=== PATIENT | male | born 1985 | race African-American/Black ===

== ENCOUNTER 2021-10-22 08:56 | Emergency (ER) | payer MEDICAID ==
[~2021-10-22] VITALS: Ht 172.7 cm; Wt 86.0 kg
[2021-10-22] MEDS ORDERED: ONDANSETRON HCL 4MG/2ML INJ IV STA (09:17)
[2021-10-22] MEDS ORDERED: MORPHINE SULFATE 4 MG/ML CPJ (NOT FOR IM USE) IV STA (09:17)
[2021-10-22 09:39] LABS: HEMATOCRIT. 42.1 % (42.0-52.0); HEMOGLOBIN. 13.9 g/dL (14.0-18.0); MEAN CORPUSCULAR HEMOGLOBIN 30.4 pg (28.0-32.0); MEAN CORPUSCULAR VOLUME 92.2 fL (80.0-94.0); MEAN PLATELET VOLUME 7.3 fl (7.4-10.4); PLATELET 536 x1000/uL (130-400); RED BLOOD CELL COUNT 4.57 mill/uL (4.7-6.1); RED CELL DISTRIBUTION WIDTH 13.9 % (11.6-14.6)
[2021-10-22 09:48] LABS: CHLORIDE 104 mEq/L (98-107)
[2021-10-22 10:04] LABS: NUCLEATED RED BLOOD CELLS 1 /100 WBC; PLATELET ESTIMATE INCREASED
[2021-10-22] MEDS ORDERED: LEVOFLOXACIN 750MG PREMIX 150 ML IV ONE (11:30)
[2021-10-22] MEDS ORDERED: METRONIDAZOLE 500 MG PREMIX 100 ML IV ONE (11:30)
[2021-10-22] MEDS ORDERED: METRONIDAZOLE 500MG TABLET PO NR (11:45)
[2021-10-22 14:02] VITALS: BP 136/82
== END 2021-10-22 14:43 | disposition short-term general hospital (02) ==
LOC: ER 09:03
DX: K52.9 Noninfective gastroenteritis and colitis, unspecified (principal); K57.30 Diverticulosis of large intestine without perforation or abscess without bleeding; K44.9 Diaphragmatic hernia without obstruction or gangrene; R03.0 Elevated blood-pressure reading, without diagnosis of hypertension; J45.909 Unspecified asthma, uncomplicated; R59.0 Localized enlarged lymph nodes; F17.210 Nicotine dependence, cigarettes, uncomplicated; F12.90 Cannabis use, unspecified, uncomplicated; Z71.6 Tobacco abuse counseling; Z90.49 Acquired absence of other specified parts of digestive tract
CPT/HCPCS: 36415; 74176; 80053; 83690; 85025; 93005; 96365; 96375; 99285; J1956; J2270; J2405; J3490

== ENCOUNTER 2024-01-09 14:28 | Emergency (ER) | payer MEDICAID, OTHER ==
[~2024-01-09] VITALS: Ht 180.3 cm; Wt 109.0 kg
[2024-01-09 14:36] VITALS: TEMP 98.3; O2SAT 100
[2024-01-09] MEDS ORDERED: ACET-2708 MT (14:59)
[2024-01-09] MEDS ORDERED: FLUT15.844 BOTHNSTRLS (14:59)
[2024-01-09] MEDS: DEXAMETHASONE 10 MG/ML VIAL PO ONE (16:43)
[2024-01-09] MEDS: ACETAMINOPHEN 325MG TABLET PO ONE (16:43)
[2024-01-09] MEDS ORDERED: FAMO-135 MT (17:17)
[2024-01-09 18:20] VITALS: BP 144/89; PULSE 68; RESP 16
== END 2024-01-09 18:21 | disposition home or self-care (01) ==
LOC: ER 14:28
DX: J02.9 Acute pharyngitis, unspecified (principal); K21.9 Gastro-esophageal reflux disease without esophagitis; F12.10 Cannabis abuse, uncomplicated; H69.82 Other specified disorders of Eustachian tube, left ear; Z98.890 Other specified postprocedural states; Z90.49 Acquired absence of other specified parts of digestive tract
CPT/HCPCS: 87430; 87070; 99283; J1100; Z7610

== ENCOUNTER 2024-02-26 16:07 | Emergency (ER) | payer OTHER ==
[~2024-02-26] VITALS: Ht 182.9 cm; Wt 91.0 kg
[~2024-02-26 16:07] MED LIST: ACET-2708 MT; FAMO-135 MT; FLUT15.844 BOTHNSTRLS
[2024-02-26 16:23] VITALS: BP 145/103; PULSE 90; RESP 16; TEMP 97.9; O2SAT 100
[2024-02-26] MEDS ORDERED: TETANUS, DIPHTHERIA, PERTUSSIS VAC/PF 0.5ML (>10YR OLD) IM ONE (16:45)
[2024-02-26] MEDS ORDERED: LIDOCAINE HCL/PF 1% 10 MG/ML 5ML VIAL INFIL ONE (16:45)
== END 2024-02-26 17:18 | disposition left against medical advice (07) ==
LOC: ER 16:07
DX: S01.01XA Laceration without foreign body of scalp, initial encounter (principal); F10.129 Alcohol abuse with intoxication, unspecified; F12.10 Cannabis abuse, uncomplicated; Z88.6 Allergy status to analgesic agent; Z98.890 Other specified postprocedural states; Z90.49 Acquired absence of other specified parts of digestive tract; Y04.0XXA Assault by unarmed brawl or fight, initial encounter; Y93.89 Activity, other specified; Y92.89 Other specified places as the place of occurrence of the external cause; Y99.8 Other external cause status; Y90.9 Presence of alcohol in blood, level not specified
CPT/HCPCS: 12001; 99283; J3490; Z7610

== ENCOUNTER 2024-02-26 18:42 | Emergency (ER) | payer OTHER ==
[~2024-02-26] VITALS: Ht 180.3 cm; Wt 104.0 kg
[2024-02-26 18:52] VITALS: O2SAT 95
[2024-02-26] MEDS: LIDOCAINE HCL/PF 1% 10 MG/ML 5ML VIAL INFIL ONE (20:14)
[2024-02-26 21:38] VITALS: BP 140/80; PULSE 79; RESP 16; TEMP 98.7
== END 2024-02-26 21:40 | disposition home or self-care (01) ==
LOC: ER 18:42
DX: S01.01XA Laceration without foreign body of scalp, initial encounter (principal); S09.90XA Unspecified injury of head, initial encounter; F10.129 Alcohol abuse with intoxication, unspecified; J45.909 Unspecified asthma, uncomplicated; F12.10 Cannabis abuse, uncomplicated; Z90.49 Acquired absence of other specified parts of digestive tract; Y08.89XA Assault by other specified means, initial encounter; Y93.89 Activity, other specified; Y92.89 Other specified places as the place of occurrence of the external cause; Y99.8 Other external cause status; Y90.0 Blood alcohol level of less than 20 mg/100 ml
CPT/HCPCS: 71045; 70450; 72125; 12002; 99284; J3490; Z7610

== ENCOUNTER 2024-03-08 19:22 | Emergency (ER) | payer OTHER ==
[~2024-03-08] VITALS: Ht 180.3 cm; Wt 100.0 kg
[2024-03-08 19:46] VITALS: BP 116/77; PULSE 75; RESP 14; TEMP 98.7; O2SAT 99
[2024-03-08] MEDS ORDERED: BO1 TP (22:09)
== END 2024-03-08 22:14 | disposition home or self-care (01) ==
LOC: ER 21:09
DX: S09.90XD Unspecified injury of head, subsequent encounter (principal); J45.909 Unspecified asthma, uncomplicated; F12.10 Cannabis abuse, uncomplicated; Z79.899 Other long term (current) drug therapy; X58.XXXD Exposure to other specified factors, subsequent encounter
CPT/HCPCS: 99281

== ENCOUNTER 2025-01-15 10:33 | Emergency (ER) | payer OTHER ==
[~2025-01-15] VITALS: Ht 180.3 cm; Wt 104.3 kg
[~2025-01-15 10:33] MED LIST changes: +BO1 TP
[2025-01-15 10:41] VITALS: BP 174/118; PULSE 71; RESP 16; TEMP 36.7; O2SAT 100
[2025-01-15] MEDS: MAGNESIUM/ALUMINUM HYDROXIDE/SIMETHICONE 30ML UDC PO ONE (11:00)
[2025-01-15] MEDS: ACETAMINOPHEN 325MG TABLET PO ONE (11:00)
[2025-01-15] MEDS: FAMOTIDINE 20MG TABLET PO ONE (11:00)
[2025-01-15 11:12] LABS: HEMATOCRIT. 34.6 % (42.0-52.0); HEMOGLOBIN. 10.3 g/dL (14.0-18.0); MEAN CORPUSCULAR HEMOGLOBIN 20.4 pg (28.0-32.0); MEAN CORPUSCULAR HGB CONC 29.8 g/dL (31.0-37.0); MEAN CORPUSCULAR VOLUME 68.6 fL (80.0-94.0); MEAN PLATELET VOLUME 7.5 fl (7.4-10.4); PLATELET 533 x1000/uL (130-400); RED BLOOD CELL COUNT 5.04 mill/uL (4.7-6.1); RED CELL DISTRIBUTION WIDTH 20.7 % (11.6-14.6); WHITE BLOOD COUNT 9.2 x1000/uL (4.5-11.0)
[2025-01-15 11:15] LABS: CHLORIDE 99 mEq/L (98-107); POTASSIUM 3.8 mEq/L (3.5-5.1); SODIUM 139 mEq/L (136-145)
[2025-01-15 11:16] LABS: CALCIUM 9.5 mg/dL (8.7-10.4); CARBON DIOXIDE 32 mEq/L (21-32)
[2025-01-15 11:17] LABS: DIFFERENTIAL COMMENT 1
[2025-01-15 11:21] LABS: GLUCOSE 90 mg/dL (70-105); UREA NITROGEN BLOOD 8 mg/dL (9-23)
[2025-01-15 11:23] LABS: ALANINE AMINOTRANSFERASE < 7 IU/L (10-49); ALBUMIN 4.3 g/dL (3.2-4.8); ASPARTATE AMINOTRANSFERASE 16 IU/L (<34); BILIRUBIN TOTAL 0.5 mg/dL (0.1-1.0); PROTEIN TOTAL 7.5 g/dL (6.0-8.3)
[2025-01-15 11:52] LABS: ANISOCYTOSIS 2+; HYPOCHROMASIA 1+; MICROCYTOSIS 2+; PLATELET ESTIMATE INCREASED
[2025-01-15] MEDS ORDERED: FAMO-135 MT (11:56)
== END 2025-01-15 12:51 | disposition home or self-care (01) ==
LOC: ER 10:33
DX: R10.9 Unspecified abdominal pain (principal); Z88.6 Allergy status to analgesic agent
CPT/HCPCS: 36415; 80053; 85025; 99284

== ENCOUNTER 2025-08-19 15:37 | Emergency (ER) | payer OTHER ==
[~2025-08-19] VITALS: Ht 182.9 cm; Wt 91.0 kg
[2025-08-19 15:38] VITALS: O2SAT 98
[2025-08-19] MEDS: LIDOCAINE HCL/EPINEPHRINE 1%-EPI 1:100,000 20ML VIAL INFIL ONE (16:00)
[2025-08-19] MEDS: TETANUS, DIPHTHERIA, PERTUSSIS VAC/PF 0.5ML (>10YR OLD) IM ONE (16:00)
[2025-08-19] MEDS: ACETAMINOPHEN 325MG TABLET PO ONE (16:15)
[2025-08-19] MEDS: MORPHINE SULFATE 4 MG/ML INJ (FOR IV/IM USE) IM ONE (17:15)
[2025-08-19] MEDS ORDERED: CLIN-116 MT (18:19)
[2025-08-19 18:44] VITALS: BP 159/105; PULSE 71; RESP 18; TEMP 37.1; O2SAT 100
== END 2025-08-19 18:44 | disposition home or self-care (01) ==
LOC: ER 15:41
DX: S01.511A Laceration without foreign body of lip, initial encounter (principal); F12.90 Cannabis use, unspecified, uncomplicated; J45.909 Unspecified asthma, uncomplicated; F10.90 Alcohol use, unspecified, uncomplicated; Z98.890 Other specified postprocedural states; Z79.899 Other long term (current) drug therapy; Z90.49 Acquired absence of other specified parts of digestive tract; Z88.6 Allergy status to analgesic agent; Y04.0XXA Assault by unarmed brawl or fight, initial encounter; Y93.89 Activity, other specified; Y92.89 Other specified places as the place of occurrence of the external cause; Y99.8 Other external cause status; Y90.9 Presence of alcohol in blood, level not specified
CPT/HCPCS: 70486; 90715; 12011; 90471; 99285; J2004; Z7610 ×2; J2270

== ENCOUNTER 2025-09-16 12:58 | Emergency (ER) | payer OTHER ==
[~2025-09-16] VITALS: Ht 180.3 cm; Wt 91.0 kg
[~2025-09-16 12:58] MED LIST changes: +CLIN-116 MT
[2025-09-16 13:11] VITALS: O2SAT 99
[2025-09-16] MEDS ORDERED: MORPHINE SULFATE 2 MG/ML INJ (NOT FOR IM USE) IV ONE (14:00)
[2025-09-16] MEDS ORDERED: FAMOTIDINE 20MG/2ML VIAL IV ONE (14:00)
[2025-09-16 15:25] LABS: HEMATOCRIT. 34.6 % (42.0-52.0); HEMOGLOBIN. 10.4 g/dL (14.0-18.0); MEAN PLATELET VOLUME 7.7 fl (7.4-10.4); PLATELET 394 x1000/uL (130-400); RED BLOOD CELL COUNT 4.90 mill/uL (4.7-6.1); RED CELL DISTRIBUTION WIDTH 21.0 % (11.6-14.6)
[2025-09-16 15:41] LABS: CREATININE 1.0 mg/dL (0.6-1.3); UREA NITROGEN BLOOD 8 mg/dL (9-23)
[2025-09-16 15:43] LABS: ASPARTATE AMINOTRANSFERASE 39 IU/L (<34); BILIRUBIN DIRECT 0.3 mg/dL (<=3.0)
[2025-09-16 15:44] LABS: BILIRUBIN TOTAL 0.7 mg/dL (0.1-1.0); PROTEIN TOTAL 7.3 g/dL (6.0-8.3)
[2025-09-16] MEDS: MORPHINE SULFATE 4 MG/ML INJ (FOR IV/IM USE) IV SCH (15:49)
[2025-09-16] MEDS: SODIUM CHLORIDE 0.9% 1,000 ML IV ONE (15:50)
[2025-09-16] MEDS: METOCLOPRAMIDE HCL 10MG/2ML VIAL IV ONE (15:50)
[2025-09-16] MEDS: FAMOTIDINE 20MG/2ML VIAL IV NR (15:50)
[2025-09-16] MEDS ORDERED: FAMO-135 MT (15:59)
[2025-09-16] MEDS ORDERED: LOPE2CAP MT (15:59)
[2025-09-16] MEDS ORDERED: ONDA-239 PO (15:59)
[2025-09-16 16:21] VITALS: BP 157/101; PULSE 71; RESP 18; TEMP 36.7; O2SAT 99
[2025-09-16 18:05] LABS: LYMPHOCYTES % MANUAL 15.0 % (20.0-50.0); MONOCYTES % MANUAL 10.0 % (2.0-8.0); NEUTROPHILS % MANUAL 75.0 % (45.0-75.0); NUCLEATED RED BLOOD CELLS 1 /100 WBC; PLATELET ESTIMATE NORMAL
== END 2025-09-16 16:34 | disposition home or self-care (01) ==
LOC: ER 12:58 → CANBEDREQ 16:12 → ER 16:34
DX: K52.9 Noninfective gastroenteritis and colitis, unspecified (principal); R11.10 Vomiting, unspecified; F12.90 Cannabis use, unspecified, uncomplicated; J45.909 Unspecified asthma, uncomplicated; Z88.6 Allergy status to analgesic agent; Z90.49 Acquired absence of other specified parts of digestive tract
CPT/HCPCS: 99285; 74176; 96374; 76705; 96375; 96361; 80076; 80048; 83690; 83735; 85025; 36415; J1308; J2765; J2270; J7030